=== PATIENT | male | born 1985 | race Caucasian/White ===

== ENCOUNTER 2019-08-28 05:49 | Emergency (ER) | payer BC ==
[~2019-08-28] VITALS: Ht 182.9 cm; Wt 103.4 kg
[2019-08-28 06:44] LABS: URINE BILIRUBIN NEGATIVE (Negative); URINE BLOOD NEGATIVE (Negative); URINE CLARITY CLEAR; URINE COLOR YELLOW; URINE GLUCOSE-RANDOM* 3+ (Negative); URINE KETONES 1+ (Negative); URINE LEUKOCYTES-REFLEX NEGATIVE (Negative); URINE NITRITE-REFLEX NEGATIVE (Negative); URINE PROTEIN (DIPSTICK) NEGATIVE (Negative); URINE SPECIFIC GRAVITY <= 1.005 (1.005-1.035); URINE UROBILINOGEN 0.2 E.U./dl (0.2-1.0)
[2019-08-28] MEDS ORDERED: AUGMENTIN 875-1 EACH PO (07:24)
[2019-08-28] MEDS ORDERED: NEURONTIN 300300 M1 PO (07:24)
[2019-08-28 07:37] VITALS: BP 148/104
== END 2019-08-28 07:42 | disposition home or self-care (01) ==
LOC: ER 05:49
PROVIDERS: Emergency Medicine
DX: S91.051A Open bite, right ankle, initial encounter (principal); S90.872A Other superficial bite of left foot, initial encounter; I10 Essential (primary) hypertension; E10.9 Type 1 diabetes mellitus without complications; W54.0XXA Bitten by dog, initial encounter; Y92.89 Other specified places as the place of occurrence of the external cause; Y93.89 Activity, other specified; Y99.8 Other external cause status